=== PATIENT | male | born 1945 | race Caucasian/White ===

== ENCOUNTER 2021-06-17 07:26 | Emergency (ER) | payer OTHER, MEDICARE ==
[2021-06-17 07:35] VITALS: BMI 33.5
[2021-06-17] MEDS ORDERED: CASIRIVIMAB/IMDEVIMAB 10 ML in SODIUM CHLORIDE 100 ML IVPB ONE (08:56)
[2021-06-17 09:18] LABS: BASO % 0.3 % (0-2.0); EOS % 1.5 % (0-4.5); HEMATOCRIT 33.5 % (35.4-49); HEMOGLOBIN 11.3 GM/dL (11.7-16.9); LYMPH % 12.4 % (8-40); MCHC 33.8 g/dl (32.0-35.9); MEAN CELL VOLUME 91.7 fl (80-96); MEAN PLT VOLUME 8.6 fl (7.5-11.1); MONO % 12.8 % (3.8-10.2); PLATELET COUNT 204 10^3/uL (134-434); RBC 3.65 M/mm3 (4.00-5.60); RDW 13.9 % (11.9-15.9)
[2021-06-17 09:25] LABS: INR 1.4 (0.83-1.09); PROTHROMBIN TIME (PATIENT) 16.8 SEC (9.7-13.0)
[2021-06-17 09:28] LABS: ACTIVATED PTT 38.5 SECONDS (25.2-36.5)
[2021-06-17 09:43] LABS: CHLORIDE 109 mmol/L (98-107); SODIUM 141 mmol/L (136-145)
[2021-06-17 09:45] LABS: CALCIUM 8.5 mg/dL (8.5-10.1)
[2021-06-17 09:47] LABS: ALBUMIN 3.4 g/dl (3.4-5.0); ANION GAP 11 MMOL/L (8-16); CO2 22 mmol/L (21-32); GLUCOSE,RANDOM 99 mg/dL (74-106); MAGNESIUM 2.4 mg/dL (1.8-2.4)
[2021-06-17 09:48] LABS: SGPT/ALT 24 U/L (13-61)
[2021-06-17 09:49] LABS: CREATININE 1.5 mg/dL (0.55-1.3); SGOT/AST 15 U/L (15-37)
[2021-06-17 09:51] LABS: ALK PHOS 67 U/L (45-117); BILIRUBIN,TOTAL 0.4 mg/dL (0.2-1); TOT PROT 6.9 g/dl (6.4-8.2)
[2021-06-17 09:54] LABS: N-TERMINAL BNP 187.9 pg/ml (5-450)
[2021-06-17 11:20] VITALS: PULSE 63
[2021-06-17 12:25] VITALS: BP 118/70; TEMP 98.3
== END 2021-06-17 12:26 | disposition home or self-care (01) ==
LOC: JCOVINFU 07:26 → JER 07:26 → JCOVINFU 12:26
DX: U07.1 COVID-19 (principal)
CPT/HCPCS: 36415; 71046-TC-FY; 80053; 82550; 83735; 83880; 84484; 85025; 85610; 85730; 93005; 93010; 99285-25; M0240; Q0240